=== PATIENT | female | born 1965 | race Caucasian/White ===

== ENCOUNTER 2018-03-16 13:07 | Emergency (ER) | payer OTHER ==
[~2018-03-16] VITALS: Ht 175.3 cm; Wt 61.4 kg
[~2018-03-16 13:07] MED LIST: AMOXICILLIN875 MG PO; ASPIR 8181 M1 PO; CYCLOBENZAPRINE5 MG PO; ENDOCET 5-3251 EACH PO; GABAPENTIN400 MG PO; NAPROSYN500 MG PO; NORCO 5/3251 TABLET PO
[2018-03-16] MEDS ORDERED: MEDROL DOSEPAK4 MG PO (13:33)
[2018-03-16] MEDS ORDERED: PEPCID20 MG PO (13:33)
[2018-03-16] MEDS ORDERED: ATARAX,VISTARIL25 MG PO (13:33)
[2018-03-16 13:57] VITALS: BP 125/62
== END 2018-03-16 13:58 | disposition home or self-care (01) ==
LOC: EME 13:07
DX: L20.9 Atopic dermatitis, unspecified (principal); Z79.82 Long term (current) use of aspirin; F17.200 Nicotine dependence, unspecified, uncomplicated
CPT/HCPCS: 99281; 99283

== ENCOUNTER 2018-04-08 17:21 | Emergency (ER) | payer OTHER ==
[~2018-04-08 17:21] MED LIST changes: +ATARAX,VISTARIL25 MG PO; +MEDROL DOSEPAK4 MG PO; +PEPCID20 MG PO
== END 2018-04-08 20:42 | disposition left against medical advice (07) ==
LOC: EME 17:21
DX: R68.89 Other general symptoms and signs (principal); Z53.21 Procedure and treatment not carried out due to patient leaving prior to being seen by health care provider